=== PATIENT | male | born 1965 ===

== ENCOUNTER 2024-05-24 10:45 | Day surgery (SDC) | payer OTHER ==
[~2024-05-24] VITALS: Ht 165.1 cm; Wt 103.0 kg
[2024-05-24] MEDS: MIDAZOLAM 2 MG/2 ML VIAL IVP ONE (13:12)
[2024-05-24] MEDS: fentaNYL citrate 0.05 MG/ML VIAL IVP ONE (13:14)
== END 2024-05-24 14:45 | disposition home or self-care (01) ==
LOC: MDS 10:45 → MMU 10:46 → MDS 14:45
PROVIDERS: ATTEND Internal Medicine Gastroenterology
DX: R07.0 Pain in throat (principal); K22.2 Esophageal obstruction; E78.5 Hyperlipidemia, unspecified; E11.9 Type 2 diabetes mellitus without complications; Z79.82 Long term (current) use of aspirin; Z86.010 Personal history of colon polyps; Z80.0 Family history of malignant neoplasm of digestive organs; Z79.899 Other long term (current) drug therapy; Z98.890 Other specified postprocedural states
CPT/HCPCS: 82948